=== PATIENT | female | born 1955 | race Caucasian/White ===

== ENCOUNTER → 2017-11-12 07:32 | Outpatient (CLI) | payer OTHER, SELFPAY ==
[2017-11-12 08:22] LABS: Free T3 2.9 pg/mL (2.18-3.98); T4 Free Direct 1.38 ng/dL (0.76-1.46); Thyroid Stim Hormone (TSH) 0.44 uIU/mL (0.358-3.74)
[2017-11-13 08:29] LABS: Thyroid Peroxidase AB > 600 IU/mL (0-34)
== END ==
PROVIDERS: Family Provider Nurse Practitioner Family; PCP Nurse Practitioner Family; Visit Provider Nurse Practitioner Family
DX: E04.9 Nontoxic goiter, unspecified (principal)
CPT/HCPCS: 36415; 84439; 84443; 84481; 86376

== ENCOUNTER → 2017-11-13 07:55 | Outpatient (CLI) | payer OTHER, SELFPAY ==
--- NOTE | 2017-11-13 07:56 | US_ITS ---
STUDY: THYROID ULTRASOUND REASON FOR EXAM: Female, 62 years old. History of nontoxic goiter. TECHNIQUE: Ultrasound evaluation of the thyroid was performed with real-time and static gaines-scale imaging. COMPARISON: Comparison is made with prior study dated June 09, 2017. FINDINGS: RIGHT LOBE: The right lobe of the thyroid gland measures 4.1 cm x 1.0 cm x 1.0 cm. There is a heterogeneous echotexture. Stable 3 mm x 3 mm x 2 mm calcification is seen in the upper pole. LEFT LOBE: The left lobe of the thyroid gland measures 3.3 cm x 0.7 cm x 0.7 cm. There is a heterogeneous echotexture. There are no demonstrated solid, cystic or complex lesions. ISTHMUS: The isthmus measures 5.0 mm. A 2 cm x 1 cm x 0.5 cm lymph node is seen lateral to the left lobe of the thyroid. US/Thyroid IMPRESSION: Heterogeneous echotexture of the thyroid lobes. 3 mm x 3 mm x 2 mm calcification in the upper pole of the right lobe. 2 cm x 1 cm x 0.5 cm benign-appearing lymph node seen lateral to the left lobe of the thyroid. Electronically Signed: Tj Kemp MD at 11:08 EST Tel [phone], Service support ,
== END ==
PROVIDERS: Family Provider Nurse Practitioner Family; PCP Nurse Practitioner Family; Visit Provider Nurse Practitioner Family
DX: E04.9 Nontoxic goiter, unspecified (principal)
CPT/HCPCS: 76536

== ENCOUNTER 2017-12-09 17:55 | Observation (INO) | payer OTHER, SELFPAY ==
[2017-12-09] VITALS (9 sets, daily range): BP systolic 102–144; BP diastolic 70–97; PULSE 69–88; RESP 13–18; TEMP 36.6–36.7; O2SAT 94–98; BMI 26.0; BMI 25.2
--- NOTE | 2017-12-09 18:26 | EKG12_ITS ---
Test Reason : CP Blood Pressure : / mmHG Vent. Rate : 074 BPM Atrial Rate : 074 BPM P-R Int : 128 ms QRS Dur : 080 ms QT Int : 354 ms P-R-T Axes : 034 016 029 degrees QTc Int : 392 ms Normal sinus rhythm Normal ECG Confirmed by DEANDRE FERRER, BOSSMAN ([id number]), dictionary editor SUKHDEV CASAS ([id number]) on 12/11/2017 1:23:42 PM Referred By: ROSALES Confirmed By:BOSSMAN CARRERA MD
--- NOTE | 2017-12-09 18:40 | RAD_ITS ---
STUDY: X-RAY CHEST REASON FOR EXAM: Female, 62 years old. Chest pain. TECHNIQUE: Single AP portable view of the chest. COMPARISON: June 05, 2017. FINDINGS: Port on the right extends to the lower superior vena cava. The lungs are clear and expanded. There is no demonstrated pleural abnormality. Normal size heart. Normal mediastinum and valdo. Normal visualized pulmonary arteries. There is atherosclerotic tortuosity of the aortic arch and descending thoracic aorta. There is demineralization of the osseous structures. Normal visualized ribs, clavicles, and shoulders. There is no demonstrated abnormality of the visualized soft tissue structures of the upper abdomen. RAD/Chest 1 View (Portable) IMPRESSION: Degenerative changes, as described above. No demonstrated acute cardiopulmonary process. Stable appearance. Electronically Signed: Anthony Ledesma MD at 19:11 EST , Service support ,
--- NOTE | 2017-12-09 18:59 | ED.RN ---
PT REQUESTED STRAIGHT STICK NO IV.
[2017-12-09 19:05] LABS: Absolute Lymphocyte Count 2.12 X10^3/ul (0.83-4.51); Absolute Neutrophil Count 1.9 X10^3/uL (2.0-7.7); Basophil# 0.02 X10^3/uL; Basophil% 0.4 % (0-1); Eosinophil# 0.15 X10^3/uL; Eosinophils% 3.1 % (0-5); Hematocrit 35.4 % (37-47); Hemoglobin 11.6 g/dl (12.0-15.0); Lymphocyte # 2.12 X10^3/ul (4.0); Lymphocyte % 44.2 % (19-41); Mean Corp Hgb Conc 32.8 g/gl (32-36); Mean Corpuscular Hgb 31.7 pg (27.0-32.0); Mean Corpuscular Volume 96.7 fL (81-99); Mean Platelet Vol. 9.6 fl (6.2-12.0); Monocyte% 12.5 % (0-10); Neutrophil # 1.91 X10^3/uL (2.7-7.7); Neutrophil % 39.8 % (47-70); Platelet Count 207 K/mm3 (150-450); RBC Distribution Width SD 45.8 fl (35.1-43.9); Red Blood Count 3.66 M/mm3 (4.2-5.4); White Blood Count 4.8 K/mm3 (4.4-11.0)
[2017-12-09 19:09] LABS: POSITIVE COUNT NO; POSITIVE DIFFERENTIAL NO; POSITIVE MORPHOLOGY NO
[2017-12-09 19:28] LABS: Anion Gap 7 (5-15); BUN 13 mg/dL (7-18); BUN/Creat Ratio 18.1 RATIO (10-20); Calcium,Total 8.7 mg/dL (8.5-10.1); Chloride 105 mmol/L (98-107); Creatinine, Serum 0.72 mg/dL (0.55-1.02); EST Glomerular Filtration Rate 87 mL/min (>60); Est Glom Filt Rate - Afr Amer 105 mL/min (>60); Estimated Creatinine Clearance 68.16 ml/min; Glucose 69 mg/dL (74-106); Potassium 3.6 mmol/L (3.5-5.1); Sodium Level 142 mmol/L (136-145)
--- NOTE | 2017-12-09 20:25 | ED.VISSUMM ---
- ER Visit Summary Date of Service: 12/09/17 Chief Complaint: [Chest pain] History of Present Illness: The patient is a 62 F [presents to the emergency department chest discomfort started about 3-4 days ago. Patient states the pain typically comes on when she is at work. Patient does not think that it is brought on by exertion. Patient describes it as in the center of her chest without any radiation. Patient denies any diaphoresis or shortness of breath. Patient denies any nausea with it. Patient is currently pain-free. Patient is a cancer patient with history of ovarian cancer and her last chemotherapy was September 25. Patient describes the discomfort in her chest as a tightness like and lasting anywhere from up to 15-20 minutes. The pain is not pleuritic. His last stress test was in 2002. There is no family history of heart disease at a young age although her father of an PR in his 70s.] Physical Examination: [HEENT-PERRLA, EOMI. Cranial nerves II through XII grossly intact. TMs clear. Mucous membranes moist. No adenopathy. Cardiovascular-regular rate and rhythm without murmur or ectopy Lungs-clear to auscultation, chest wall stable without crepitus or subcu emphysema Abdomen-normoactive bowel sounds, soft, nontender, no rebound or rigidity, no peritoneal signs. Extremities-intact ?4, normal range of motion, normal pulses, atraumatic] Test Results: [EKG obtained on arrival showed a sinus rhythm with a ventricular rate 74 bpm with no acute ST segment changes. CBC with differential was unremarkable. Chemistries unremarkable. Troponin was less than 0.02. Chest x-ray showed nothing acute.] Emergency Department Course and Treatment: [Patient received aspirin in the emergency department] Treatment Plan: [Admit for further workup and evaluation] Disposition: [Admit] Impression: [Chest pain-rule out acute coronary syndrome] This note was generated with e[employer] dictation software. It may contain incorrect words, spelling, and punctuation that were not noted in review of the chart prior to signing ED Disposition - Plan for ED Patient: Chief Complaint: Chest Pain Referrals: Vaishnavi Dudley [Primary Care Provider] -
[2017-12-09] MEDS: Aspirin 81 MG TAB.CHEW 324 MG PO (20:33)
--- NOTE | 2017-12-09 20:56 | HP.PCM_ITS ---
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 GERD comes in with complaints of substernal dull chest pain that has been ongoing since 4 days. Patient denies any history of heart disease, has been having substernal chest pain that typically last about 15 minutes, does not radiate to any part of the body, not associated with nausea or vomiting or dizziness or palpitations. She describes substernal chest pressure or pain which feels like she needs to taking a deep breath. She cannot related to any aggravating or relieving factors. Seems to come on and off by itself multiple times in the day. She decided to come to the ED today because the discomfort was worse. No history of recent travel. She works as a home health nurse. Last stress test was 15 years ago, has not had any echocardiogram or cardiac cath in his life. Vitals are stable with T 97.9F, HR 88 BP 119/70, respiratory rate is 16, patient is saturating 95% on room air. Admitting blood work showed RBC count of 4.8, Hb 11.6, platelet 207. Sodium is 142, potassium 3.6, chloride 105, bicarbonate 30, BUN 13 creatinine 0.72. Troponins 0.02, EKG shows normal sinus rhythm no acute ST-T changes. Chest x-ray shows no acute cardiopulmonary process. Past Medical History Past Medical History (Chronic Problems): Chronic Problems Hypothyroidism (Chronic) Ovarian cancer (Chronic) Allergies Sulfa (Sulfonamide Antibiotics) Allergy (Verified 12/09/17 17:57) Unknown codeine Adverse Reaction (Verified 12/09/17 17:57) Vomiting pentazocine [From Talwin] Adverse Reaction (Verified 12/09/17 17:57) Other HALLUCINATIONS Home Medications: Ambulatory Orders Medication Instructions Recorded Levothyroxine [Synthroid] 88 mcg PO DAILY 04/03/17 Pantoprazole Sodium [Protonix] 40 mg PO DAILY 04/03/17 B Complex with Vitamin C tab PO DAILY 12/09/17 [B-Complex Plus Vitamin C] Docusate Sodium [Colace] 100 mg PO DAILY 12/09/17 Surgical History: hysterectomy - with bilateral BSO, tonsillectomy, - - right knee arthoscopy 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 History: ovarian cancer - s/p chemotherapy Lives: With Family Smoking Status: Former smoker Tobacco Use: Non-smoker Alcohol: None Drugs: None - *Family History Maternal History Items: Hypertension, - - hypothyroidism Paternal History Items: Heart Disease - [place], GERD Review of Systems Constitutional: Denies: Chills, Fever, Weight Change Eyes: Denies: Blurred vision, Cataracts, Conjunctivae Inflammation, Double vision, Pain, Redness HEENT: Denies: Difficulty Hearing, Difficulty Swallowing, Head Aches, Hearing Changes, Sinus Congestion, Sinus Drainage Cardiovascular: Denies: Chest Pain, Claudication, Chest Pressure, Orthopnea, Palpitations, Paroxysmal Noc. Dyspnea Respiratory: Denies: Cough, Shortness of breath at rest, Sputum production Gastrointestinal: Denies: Abdominal Pain, Nausea, Vomiting Genitourinary: Denies: Dysuria Musculoskeletal: Denies: Joint Pain, Joint Tenderness Skin: Denies: Rash, Wounds Neurological: Denies: Numbness, Tingling, Focal weakness Psychiatric: Denies: Anxiety, Depression, Homicidal Ideations, Suicidal Ideations Hematologic/ Lymphatic: Denies: Easy Bruising, Easy Bleeding VTE Information - Inpt Only VTE Present on Admission: No VTE Pharm Prophylaxis ordered?: Yes Patient Problems: Active and Suspected Problems Chest pain (Acute) - Physical Exam General: Alert, Oriented x3, Cooperative HEENT: Atraumatic, PERRLA, EOMI, Normocephalic Neck: Supple, No JVD, Negative Carotid Bruits Lungs: Clear to auscultation, Normal air movement Cardiovascular: Regular rate, No murmurs Abdomen: Bowel Sounds Present, Soft, Non Tender Extremities: No edema, Capillary Refill Less than 3 Seconds Skin: No rashes, No breakdown Musculoskeletal: No Tenderness to Palpation of Joints or Extremities Neurological: Cranial nerves II-XII grossly intact Psych/Mental Status: Normal Affect, Appropriate Vital Signs Temp Pulse Resp BP Pulse Ox 97.9 F 79 18 144/97 H 96 12/09/17 17:57 12/09/17 20:35 12/09/17 20:35 12/09/17 20:35 12/09/17 20:35 Oxygen Flow Rate 2 Oxygen Delivery Method Room Air Weight: 68.9 kg Body Mass Index (BMI) 26.0 Laboratory Tests Past 24 Hrs 12/09/17 12/09/17 18:57 18:57 WBC 4.8 RBC 3.66 L Hgb 11.6 L Hct 35.4 L MCV 96.7 MCH 31.7 MCHC 32.8 RDW 13.0 RDW Differential 45.8 H Plt Count 207 MPV 9.6 Immature Gran % (Auto) 0.000 Neut % (Auto) 39.8 L Lymph % (Auto) 44.2 H Bullock % (Auto) 12.5 H Eos % (Auto) 3.1 Baso % (Auto) 0.4 Absolute Neuts (auto) 1.9 L Absolute Lymphs (auto) 2.12 Total Counted Not Reportable Sodium 142 Potassium 3.6 Chloride 105 Carbon Dioxide 30.0 Anion Gap 7 BUN 13 Creatinine 0.72 Estim Creat Clear Calc 68.16 Est GFR (MDRD) Af Amer 105 Est GFR (MDRD) Non-Af 87 BUN/Creatinine Ratio 18.1 Glucose 69 L Calcium 8.7 Troponin I < 0.02 Assessment/Plan Active and Suspected Problems Chest pain (Acute) 62 year old F past medical history of ovarian cancer status post SAMEER/BSO, completed chemotherapy in September 2017, hypothyroidism. GERD comes in with complaints of substernal dull chest pain that has been ongoing since 4 days. 1. Chest pain, atypical, in a patient with risk factors, EKG shows normal sinus rhythm, no acute ST changes, d-dimer is elevated although slightly less than the cutoff point, CTA of the chest is negative for acute PE Plan: To PCU, monitor on telemetry, trend troponins, stress test in a.m., aspirin 81mg po daily, lipid profile in am 2. Elevated d-dimer, CT of the chest negative for PE 3. History of ovarian cancer, status post SAMEER/BSO, last chemotherapy was September 2017 4. Hypothyroidism, on Synthroid 5. GERD, on PPI 6. DVT prophylaxis with Lovenox Sc Code Visit OBSV E&M: [id number] Initial observation care L3
--- NOTE | 2017-12-09 21:54 | ECHOD_ITS ---
Reason For Study: CHEST PAIN Procedure This was a 2D Doppler, Color Flow transthoracic echocardiogram. Exam performed portable in patient room. Left Ventricle Normal size and thickness. The estimated ejection fraction is 65 %. Normal diastology for age. No regional wall motion abnormalities noted. Right Ventricle Normal size and thickness. Normal systolic function. Atria Normal left atrium. Normal right atrium. Normal atrial septum. Mitral Valve The mitral valve is structurally normal. No prolapse or stenosis seen. Tricuspid Valve Normal tricuspid valve. Trivial tricuspid valve insufficiency. Right ventricular systolic pressure estimated to be 26 mmHg. Aortic Valve Normal aortic valve. Trisinus/trileaflet aortic valve. Pulmonic Valve Normal pulmonic valve. Great Vessels Normal aortic root. Normal arch. Normal inferior vena cava. Inferior vena cava collapse with sniff. Pericardium/Pleural No pericardial effusion. MMode/2D Measurements & Calculations LVIDd: 4.0 cm IVSd: 0.90 cm Ao root diam: 3.3 cm LVIDs: 2.8 cm LVPWd: 1.0 cm LA dimension: 3.4 cm FS: 28.5 % LAV(MOD-bp): 31.4 ml EDV(MOD-sp4): 87.5 ml EDV(MOD-sp2): 81.6 ml LAV(MOD-bp) Indexed: 18.1 ml/m2 ESV(MOD-sp4): 35.2 ml EF(MOD-sp2): 53.7 % LAV(MOD-sp2): 34.4 ml EF(MOD-sp4): 59.8 % LAV(MOD-sp4): 28.9 ml SV(MOD-sp4): 52.3 ml SV(MOD-sp2): 43.8 ml LA A4 area: 12.2 cm2 RA A4 area: 12.0 cm2 Doppler Measurements & Calculations MV E max art: 68.7 cm/sec Ao V2 max: 146.2 cm/sec LV V1 max: 134.7 cm/sec MV A max art: 40.8 cm/sec Ao max P.6 mmHg LV V1 max P.3 mmHg MV E/A: 1.7 TR max art: 213.3 cm/sec TR max P.3 mmHg Interpretation Summary The estimated ejection fraction is 65 %. Normal diastology for age. Trivial tricuspid valve insufficiency. Right ventricular systolic pressure estimated to be 26 mmHg. There is no comparison study available. Ordering Physician: Ute Pugh Referring Physician: Vaishnavi Dudley Performed By: Gaby Grace, LANE, RVT
[2017-12-09 22:32] LABS: D-Dimer Quantitative (DVT/PE) 0.61 FEU/ug/m (0.27-0.49)
--- NOTE | 2017-12-09 22:49 | CT_ITS ---
STUDY: CTA CHEST REASON FOR EXAM: Female, 62 years old. Chest pain and elevated d-dimer. RADIATION DOSAGE (If Supplied By Facility): CTDIvol = ( 8.46 ) mGy, DLP = ( 214.11 ) mGycm TECHNIQUE: The examination was performed with the intravenous administration of 100 ml of Isovue 370 contrast material. Post-processing of the angiographic images was performed, with multiplanar reformation and 3D reconstruction. Individualized dose optimization techniques were used for this CT. COMPARISON: Portable chest radiograph of December 09, 2017 FINDINGS: Normal enhancement of the main pulmonary artery and right and left pulmonary arteries. Normal enhancement of the bilateral peripheral pulmonary arteries. There is no demonstrated pulmonary embolism. Minimal plaque and moderate elongation of the thoracic aorta without aneurysm or dissection. Normal heart and pericardium. Normal mediastinum. Normal hilar regions. Normal visualized trachea and bronchi. The lungs are well expanded. Mild bibasilar atelectatic changes. Bronchial thickening lower lobes. Normal pleura. Normal chest wall structures. There are degenerative changes of thoracic spine. Subcentimeter cyst of the right liver. CT/CTA Chest W/WO Contrast IMPRESSION: Negative for pulmonary embolus. Atherosclerotic changes of the thoracic aorta without aneurysm or dissection. Negative for coronary calcifications. Mild bibasilar atelectatic changes and lower lobe bronchial thickening. Subcentimeter cyst of the right liver. Electronically Signed: Salma Winters MD at 23:45 EST , Service support ,
[2017-12-10] VITALS (8 sets, daily range): BP systolic 104–123; BP diastolic 60–68; PULSE 67–80; RESP 16–18; TEMP 36.6–36.9; O2SAT 97–98
[2017-12-10 03:43] LABS: Hematocrit 33.4 % (37-47); Hemoglobin 11.3 g/dl (12.0-15.0); Mean Corp Hgb Conc 33.8 g/gl (32-36); Mean Corpuscular Hgb 32.9 pg (27.0-32.0); Mean Corpuscular Volume 97.4 fL (81-99); Mean Platelet Vol. 9.2 fl (6.2-12.0); Platelet Count 203 K/mm3 (150-450); RBC Distribution Width CV 12.5 % (11.6-14.6); RBC Distribution Width SD 43.1 fl (35.1-43.9); Red Blood Count 3.43 M/mm3 (4.2-5.4); White Blood Count 5.5 K/mm3 (4.4-11.0)
[2017-12-10 03:51] LABS: Partial Thromboplast Time 26.5 Seconds (24.1-36.2)
[2017-12-10 04:36] LABS: Scan Indicated on CBC? Y/N NO
[2017-12-10 04:46] LABS: International Normalized Ratio 0.9; Prothrombin Time (Protime)PT. 11.7 SECONDS (11.7-14.9)
[2017-12-10 04:47] LABS: Anion Gap 8 (5-15); BUN 12 mg/dL (7-18); BUN/Creat Ratio 20.2 RATIO (10-20); Calcium,Total 8.3 mg/dL (8.5-10.1); Chloride 106 mmol/L (98-107); Creatinine, Serum 0.59 mg/dL (0.55-1.02); EST Glomerular Filtration Rate 108 mL/min (>60); Est Glom Filt Rate - Afr Amer 131 mL/min (>60); Estimated Creatinine Clearance 83.18 ml/min; Glucose 107 mg/dL (74-106); Potassium 3.7 mmol/L (3.5-5.1); Sodium Level 141 mmol/L (136-145)
[2017-12-10] MEDS: Levothyroxine 88 MCG Tablet PO (05:46)
[2017-12-10 05:47] LABS: Cholesterol 147 mg/dL (200); High Density Lipoprotein 51 mg/dL; Triglycerides 117 mg/dL; Very Low Density Lipoprotein 23 mg/dL (5-40)
--- NOTE | 2017-12-10 05:55 | EKG12_ITS ---
Test Reason : AM EKG Blood Pressure : / mmHG Vent. Rate : 063 BPM Atrial Rate : 063 BPM P-R Int : 128 ms QRS Dur : 086 ms QT Int : 380 ms P-R-T Axes : 030 017 023 degrees QTc Int : 388 ms Normal sinus rhythm Normal ECG Confirmed by DEANDRE FERRER, BOSSMAN ([id number]), online content editor SUKHDEV CASAS ([id number]) on 12/11/2017 1:41:50 PM Referred By: MADALYN Confirmed By:BOSSMAN CARRERA MD
--- NOTE | 2017-12-10 09:54 | STRESSREP ---
Stress Test Report Date: 12/10/2017 Procedure: Pharmacologic stress nuclear imaging study Indications: Chest pain Consent: Per patient Procedure: The patient underwent pharmacologic (Regadenoson) evaluation with a peak heart rate of 117 per minute and a peak blood pressure of 126/78 mmHg. The baseline ECG demonstrated sinus rhythm. The peak pharmacologic ECG demonstrated no obvious ECG changes. There were no cardiac dysrhythmias pretest, during pharmacologic infusion, or recovery. There was no complaint of chest discomfort during pharmacologic infusion or recovery. The examination was discontinued secondary to completion of protocol. Impression: 1. Pharmacologic (Regadenoson) evaluation 2. Peak pharmacologic ECG with no obvious ECG changes. 3. No cardiac dysrhythmias pretest, during pharmacologic infusion, or recovery 4. Nuclear images pending Myocardial perfusion imaging study: Technique: The patient was injected with 11.3 millicuries of technetium 99m Cardiolite and subsequently rest SPECT Cardiolite nuclear imaging was obtained in the horizontal long, vertical long, and short axis views. The patient underwent pharmacologic (Regadenoson) evaluation with a peak heart rate of 117 per minute and a peak blood pressure of 126/78 mmHg. the patient was injected with 32.9 millicuries of technetium 99m Cardiolite and subsequently stress SPECT Cardiolite nuclear imaging was obtained in the horizontal long, vertical long, and short axis views. A gated Cardiolite study at peak stress was obtained. Interpretation: Rest and stress SPECT Cardiolite nuclear imaging status post realignment, normalization, and attenuation correction demonstrate cardiac/gastrointestinal tracer uptake and otherwise relative uniform tracer uptake and myocardial perfusion appearing within normal limits. There is end systolic thickening and brightening. The gated Cardiolite study demonstrates myocardial thickening and inward wall motion. The reported LVEF is 79%. Impression: 1. And stress SPECT Cardiolite nuclear imaging demonstrate extracardiac/gastrointestinal tracer uptake and otherwise relative uniform tracer uptake and myocardial perfusion appearing within normal limits. 2. The gated Cardiolite study reports an LVEF of 79% This note was generated with Auto Secureation software. It may contain incorrect words, spelling, and punctuation that were not noted in checking the note before signing.
--- NOTE | 2017-12-10 09:58 | STRESSREP_ITS ---
Stress Test Report Date: 12/10/2017 Procedure: Pharmacologic stress nuclear imaging study Indications: Chest pain Consent: Per patient Procedure: The patient underwent pharmacologic (Regadenoson) evaluation with a peak heart rate of 117 per minute and a peak blood pressure of 126/78 mmHg. The baseline ECG demonstrated sinus rhythm. The peak pharmacologic ECG demonstrated no obvious ECG changes. There were no cardiac dysrhythmias pretest, during pharmacologic infusion, or recovery. There was no complaint of chest discomfort during pharmacologic infusion or recovery. The examination was discontinued secondary to completion of protocol. Impression: 1. Pharmacologic (Regadenoson) evaluation 2. Peak pharmacologic ECG with no obvious ECG changes. 3. No cardiac dysrhythmias pretest, during pharmacologic infusion, or recovery 4. Nuclear images pending Myocardial perfusion imaging study: Technique: The patient was injected with 11.3 millicuries of technetium 99m Cardiolite and subsequently rest SPECT Cardiolite nuclear imaging was obtained in the horizontal long, vertical long, and short axis views. The patient underwent pharmacologic (Regadenoson) evaluation with a peak heart rate of 117 per minute and a peak blood pressure of 126/78 mmHg. the patient was injected with 32.9 millicuries of technetium 99m Cardiolite and subsequently stress SPECT Cardiolite nuclear imaging was obtained in the horizontal long, vertical long, and short axis views. A gated Cardiolite study at peak stress was obtained. Interpretation: Rest and stress SPECT Cardiolite nuclear imaging status post realignment, normalization, and attenuation correction demonstrate cardiac/gastrointestinal tracer uptake and otherwise relative uniform tracer uptake and myocardial perfusion appearing within normal limits. There is end systolic thickening and brightening. The gated Cardiolite study demonstrates myocardial thickening and inward wall motion. The reported LVEF is 79%. Impression: 1. And stress SPECT Cardiolite nuclear imaging demonstrate extracardiac/ gastrointestinal tracer uptake and otherwise relative uniform tracer uptake and myocardial perfusion appearing within normal limits. 2. The gated Cardiolite study reports an LVEF of 79% This note was generated with E[employer] software. It may contain incorrect words, spelling, and punctuation that were not noted in checking the note before signing.
[2017-12-10] MEDS: Pantoprazole Sodium 40 MG Tablet PO (10:08)
--- NOTE | 2017-12-10 10:53 | PCM.DC ---
- Discharge Diagnoses Current Active Problems: Current Active and Chronic Problems Chest pain (Acute) Hypothyroidism (Chronic) You will use the following diet at home:: Regular Your food should be the consistency of: Regular Discharge Activity: Return to Normal Activity Weight Bearing Status: Full weight bearing Call your doctor if you observe: Fever of 101 or Higher, Shortness of breath, Dizziness, Fainting spells, Chest pain, Increased palpitations (irregular heartbeat), Uncontrolled pain Allergies/Adverse Reactions: Allergies Sulfa (Sulfonamide Antibiotics) Allergy (Verified 12/09/17 17:57) Unknown codeine Adverse Reaction (Verified 12/09/17 17:57) Vomiting pentazocine [From Talwin] Adverse Reaction (Verified 12/09/17 17:57) Other HALLUCINATIONS Medications to take at Discharge Levothyroxine [Synthroid] 88 mcg PO DAILY 04/03/17 Pantoprazole Sodium [Protonix] 40 mg PO DAILY 04/03/17 B Complex with Vitamin C [B-Complex Plus Vitamin C] tab PO DAILY 12/09/17 Docusate Sodium [Colace] 100 mg PO DAILY 12/09/17 Primary Care Physician: Vaishnavi Dudley [Primary Care Provider] - Please follow up with your Primary Care Physician in: as scheduled.
--- NOTE | 2017-12-10 14:10 | PCM.DC.SUM ---
Discharge Date and Diagnosis Date of Admission: 12/09/17 Date of Discharge: 12/10/17 - Primary Discharge Diagnosis Chest pain, negative cardiac workup including stress test, attributed to GERD. - Secondary Discharge Diagnosis Chronic Problems Hypothyroidism (Chronic) Ovarian cancer (Chronic) Hospital Course and Treatment Imaging Results: 12/10/17 05:55 Nuclear Stress Test - Chemical [NM] AM (NON MEDS) Clinical Impression(s) from Imaging Studies Chest X-Ray 12/09/17 18:40 IMPRESSION: Degenerative changes, as described above. No demonstrated acute cardiopulmonary process. Stable appearance. Electronically Signed: Anthony Ledesma MD at 19:11 EST , Service support , Chest CTA 12/09/17 22:49 IMPRESSION: Negative for pulmonary embolus. Atherosclerotic changes of the thoracic aorta without aneurysm or dissection. Negative for coronary calcifications. Mild bibasilar atelectatic changes and lower lobe bronchial thickening. Subcentimeter cyst of the right liver. Electronically Signed: Salma Winters MD at 23:45 EST , Service support , Operations: None, - - Total abdominal hysterectomy, bilateral salpingo-oophorectomy Procedures: EKG, Stress test Summary of Care Provided: Patient seen and examined on the day of discharge and appeared to be stable to be discharged home. She has no more chest pain. Vital signs are stable. - Physical Exam General: Alert, Oriented x3, Cooperative, No apparent distress. HEENT: Atraumatic, PERRLA, EOMI. Neck: Supple, No JVD, Negative Carotid Bruits, Trachea Midline, Thyroid Normal. Lungs: Clear to auscultation, Normal air movement, No rhonchi, No wheeze, No rales. Cardiovascular: Regular rate, Regular Rhythm, Normal S1, Normal S2, PMI Normal. Abdomen: Bowel Sounds Present, Soft, Non Tender, Non-Distended, No Hepato-splenomegaly. Extremities: No clubbing, No cyanosis, No edema Skin: No rashes, No breakdown Neurological: Neuro grossly intact Vital Signs are stable. Hospital course: The patient is a 62 year old F with admitted a because of chest pain which seemed to be atypical. Her cardiac workup was negative. Her EKG was normal without evidence of acute ischemic changes. Her troponin was negative ?4. Chest x-ray showed no acute findings. She was found to have elevated d-dimer and because of her history of ovarian cancer, CTA chest performed and was negative for PE or dissection. Patient underwent nuclear stress test that was reported as negative without evidence of stress-induced myocardial ischemia. Acute coronary syndrome ruled out. Her vital signs has been stable. Routine blood work was unremarkable except for chronic anemia with stable hemoglobin. Patient discharged home in a stable medical condition, discharged on her same home medication without any changes, recommended follow-up with PCP as scheduled. Discharge Activity: Return to Normal Activity Weight Bearing Status: Full weight bearing Call your doctor if you observe: Fever of 101 or Higher, Shortness of breath, Dizziness, Fainting spells, Chest pain, Increased palpitations (irregular heartbeat), Uncontrolled pain Home Medications: Medications to take at Discharge Levothyroxine [Synthroid] 88 mcg PO DAILY 04/03/17 Pantoprazole Sodium [Protonix] 40 mg PO DAILY 04/03/17 B Complex with Vitamin C [B-Complex Plus Vitamin C] tab PO DAILY 12/09/17 Docusate Sodium [Colace] 100 mg PO DAILY 12/09/17 Primary Care Physician: Vaishnavi Dudley [Primary Care Provider] - Please follow up with your Primary Care Physician in: as scheduled. Disposition: Home Minutes spent on discharge:: 24 Patient Condition:: Stable Meaningful Use Info Meaningful Use Diagnoses (Choose all that apply): None applicable Code Visit OBSV E&M: 15862 Observation care discharge
--- NOTE | 2017-12-10 14:14 | DS.PCM_ITS ---
Discharge Date and Diagnosis Date of Admission: 12/09/17 Date of Discharge: 12/10/17 - Primary Discharge Diagnosis Chest pain, negative cardiac workup including stress test, attributed to GERD. - Secondary Discharge Diagnosis Chronic Problems Hypothyroidism (Chronic) Ovarian cancer (Chronic) Hospital Course and Treatment Imaging Results: 12/10/17 05:55 Nuclear Stress Test - Chemical [NM] AM (NON MEDS) Clinical Impression(s) from Imaging Studies Chest X-Ray 12/09/17 18:40 IMPRESSION: Degenerative changes, as described above. No demonstrated acute cardiopulmonary process. Stable appearance. Electronically Signed: Anthony Ledesma MD at 19:11 EST , Service support , Chest CTA 12/09/17 22:49 IMPRESSION: Negative for pulmonary embolus. Atherosclerotic changes of the thoracic aorta without aneurysm or dissection. Negative for coronary calcifications. Mild bibasilar atelectatic changes and lower lobe bronchial thickening. Subcentimeter cyst of the right liver. Electronically Signed: Salma Winters MD at 23:45 EST , Service support , Operations: None, - - Total abdominal hysterectomy, bilateral salpingo- oophorectomy Procedures: EKG, Stress test Summary of Care Provided: Patient seen and examined on the day of discharge and appeared to be stable to be discharged home. She has no more chest pain. Vital signs are stable. - Physical Exam General: Alert, Oriented x3, Cooperative, No apparent distress. HEENT: Atraumatic, PERRLA, EOMI. Neck: Supple, No JVD, Negative Carotid Bruits, Trachea Midline, Thyroid Normal. Lungs: Clear to auscultation, Normal air movement, No rhonchi, No wheeze, No rales. Cardiovascular: Regular rate, Regular Rhythm, Normal S1, Normal S2, PMI Normal. Abdomen: Bowel Sounds Present, Soft, Non Tender, Non-Distended, No Hepato- splenomegaly. Extremities: No clubbing, No cyanosis, No edema Skin: No rashes, No breakdown Neurological: Neuro grossly intact Vital Signs are stable. Hospital course: The patient is a 62 year old F with admitted a because of chest pain which seemed to be atypical. Her cardiac workup was negative. Her EKG was normal without evidence of acute ischemic changes. Her troponin was negative ?4. Chest x-ray showed no acute findings. She was found to have elevated d-dimer and because of her history of ovarian cancer, CTA chest performed and was negative for PE or dissection. Patient underwent nuclear stress test that was reported as negative without evidence of stress-induced myocardial ischemia. Acute coronary syndrome ruled out. Her vital signs has been stable. Routine blood work was unremarkable except for chronic anemia with stable hemoglobin. Patient discharged home in a stable medical condition, discharged on her same home medication without any changes, recommended follow-up with PCP as scheduled. Discharge Activity: Return to Normal Activity Weight Bearing Status: Full weight bearing Call your doctor if you observe: Fever of 101 or Higher, Shortness of breath, Dizziness, Fainting spells, Chest pain, Increased palpitations (irregular heartbeat), Uncontrolled pain Home Medications: Medications to take at Discharge Levothyroxine [Synthroid] 88 mcg PO DAILY 04/03/17 Pantoprazole Sodium [Protonix] 40 mg PO DAILY 04/03/17 B Complex with Vitamin C [B-Complex Plus Vitamin C] tab PO DAILY 12/09/17 Docusate Sodium [Colace] 100 mg PO DAILY 12/09/17 Primary Care Physician: Vaishnavi Dudley [Primary Care Provider] - Please follow up with your Primary Care Physician in: as scheduled. Disposition: Home Minutes spent on discharge:: 24 Patient Condition:: Stable Meaningful Use Info Meaningful Use Diagnoses (Choose all that apply): None applicable Code Visit OBSV E&M: 79905 Observation care discharge
== END 2017-12-10 12:12 | disposition home or self-care (01) ==
LOC: ED 20:35 → PCU 21:00
PROVIDERS: Admitting Provider Internal Medicine; Emergency Provider Emergency Medicine; Family Provider Nurse Practitioner Family; PCP Nurse Practitioner Family; Visit Provider Hospitalist
DX: R07.89 Other chest pain (principal); Z85.43 Personal history of malignant neoplasm of ovary; Z92.21 Personal history of antineoplastic chemotherapy; E03.9 Hypothyroidism, unspecified; Z79.899 Other long term (current) drug therapy; E06.3 Autoimmune thyroiditis; K21.9 Gastro-esophageal reflux disease without esophagitis; Z87.891 Personal history of nicotine dependence
CPT/HCPCS: 36415; 71045; 71275; 78452; 80048; 80061; 84484; 85025; 85027; 85379; 85610; 85730; 93005; 93017; 93306; 99218; 99283; A9500; Q9967; A4216; G0378; J2785

== ENCOUNTER → 2017-12-18 07:32 | Outpatient (CLI) | payer OTHER, SELFPAY ==
[2017-12-19 09:00] LABS: Cancer Antigen 125 5.7 U/mL (0.0-38.1)
== END ==
PROVIDERS: Family Provider Nurse Practitioner Family; PCP Nurse Practitioner Family; Visit Provider Obstetrics & Gynecology
DX: C56.9 Malignant neoplasm of unspecified ovary (principal)
CPT/HCPCS: 36591; 86304; A4216

== ENCOUNTER → 2018-01-29 07:23 | Outpatient (CLI) | payer OTHER, SELFPAY | PROVIDERS: Family Provider Nurse Practitioner Family; PCP Nurse Practitioner Family; Visit Provider Obstetrics & Gynecology | DX: Z45.2 Encounter for adjustment and management of vascular access device (principal); C56.9 Malignant neoplasm of unspecified ovary | CPT/HCPCS: 96523; A4216 ==

== ENCOUNTER → 2018-03-23 07:00 | Outpatient (CLI) | payer OTHER, SELFPAY ==
--- NOTE | 2018-03-23 07:00 | DT_ITS ---
This patient was seen during an EMR downtime March 22, 2018 - March 29, 2018. This patient may have a combination of paper and electronic documentation or all paper documentation. All documentation is viewable within the e-chart portion of [facility] for each patient visit.
== END ==
PROVIDERS: Family Provider Nurse Practitioner Family; PCP Nurse Practitioner Family; Visit Provider Obstetrics & Gynecology
DX: Z45.2 Encounter for adjustment and management of vascular access device (principal); C56.9 Malignant neoplasm of unspecified ovary
CPT/HCPCS: 36591; 86304; A4216

== ENCOUNTER → 2018-05-04 07:29 | Outpatient (CLI) | payer OTHER, SELFPAY ==
[2018-05-04 09:54] LABS: Free T3 2.5 pg/mL (2.18-3.98); T4 Free Direct 1.21 ng/dL (0.76-1.46); Thyroid Stim Hormone (TSH) 1.32 uIU/mL (0.358-3.74)
== END ==
PROVIDERS: Family Provider Nurse Practitioner Family; PCP Nurse Practitioner Family; Visit Provider Nurse Practitioner Family
DX: E06.3 Autoimmune thyroiditis (principal)
CPT/HCPCS: 36415; 84439; 84443; 84481

== ENCOUNTER → 2018-05-11 07:30 | Outpatient (CLI) | payer OTHER, SELFPAY | PROVIDERS: Family Provider Nurse Practitioner Family; PCP Nurse Practitioner Family; Visit Provider Obstetrics & Gynecology | DX: Z45.2 Encounter for adjustment and management of vascular access device (principal); C56.9 Malignant neoplasm of unspecified ovary | CPT/HCPCS: 96523 ==

== ENCOUNTER → 2018-06-08 09:59 | Outpatient (CLI) | payer OTHER, SELFPAY | PROVIDERS: Family Provider Nurse Practitioner Family; PCP Nurse Practitioner Family; Visit Provider Physician Assistant Surgical | DX: S80.02XA Contusion of left knee, initial encounter (principal); X58.XXXA Exposure to other specified factors, initial encounter; Y93.9 Activity, unspecified; Y92.9 Unspecified place or not applicable; Y99.9 Unspecified external cause status | CPT/HCPCS: 73564 ==

== ENCOUNTER → 2018-06-22 07:29 | Outpatient (CLI) | payer OTHER, SELFPAY | PROVIDERS: Family Provider Nurse Practitioner Family; PCP Nurse Practitioner Family; Visit Provider Obstetrics & Gynecology | DX: C56.9 Malignant neoplasm of unspecified ovary (principal) | CPT/HCPCS: 96523; A4216 ==

== ENCOUNTER → 2018-08-10 07:42 | Outpatient (CLI) | payer OTHER, SELFPAY ==
[2018-08-11 11:10] LABS: Cancer Antigen 125 6.2 U/mL (0.0-38.1)
== END ==
PROVIDERS: Family Provider Nurse Practitioner Family; PCP Nurse Practitioner Family; Visit Provider Obstetrics & Gynecology
DX: C56.9 Malignant neoplasm of unspecified ovary (principal)
CPT/HCPCS: 36591; 86304; A4216

== ENCOUNTER → 2018-09-21 07:41 | Outpatient (CLI) | payer OTHER, SELFPAY ==
[2018-09-22 11:58] LABS: Cancer Antigen 125 5.3 U/mL (0.0-38.1)
== END ==
PROVIDERS: Family Provider Nurse Practitioner Family; PCP Nurse Practitioner Family; Referring Provider Obstetrics & Gynecology; Visit Provider Obstetrics & Gynecology
DX: C56.9 Malignant neoplasm of unspecified ovary (principal)
CPT/HCPCS: 36591; 86304; A4216

== ENCOUNTER → 2018-11-02 07:30 | Outpatient (CLI) | payer OTHER, SELFPAY | PROVIDERS: Family Provider Nurse Practitioner Family; PCP Nurse Practitioner Family; Referring Provider Obstetrics & Gynecology; Visit Provider Obstetrics & Gynecology | DX: C56.9 Malignant neoplasm of unspecified ovary (principal) | CPT/HCPCS: 96523 ==

== ENCOUNTER → 2018-12-10 07:22 | Outpatient (CLI) | payer OTHER, SELFPAY ==
--- NOTE | 2018-12-10 07:01 | BI_ITS ---
MAMMOGRAPHY - BILATERAL SCREENING REASON FOR EXAM: Female, 63 years old. Routine annual screening examination. PERTINENT HISTORY: Non-contributory. TECHNIQUE: Digital bilateral breast charu (3D mammographic acquisition) in the CC and MLO projections. 2-D mediolateral oblique (MLO) and craniocaudad (CC) views of both breasts were obtained. CAD: Full Field Digital Mammography with Computer Added Detection was performed. COMPARISON: Comparison is made with prior outside examination dated March 25, 2017. FINDINGS: Breast Composition: The breasts are heterogeneously dense, which may obscure small masses. There are no dominant masses or suspicious calcifications. No other significant abnormalities are identified. There has been no significant change since the prior study. BI/SCREENING MAMM (CAD), BILAT IMPRESSION: Stable bilateral screening mammogram. Yearly follow-up mammogram recommended. (A) ASSESSMENT CATEGORY: BIRADS Category 1: Negative. A letter regarding these results will be sent to the patient by the facility within 30 days. Approximately 10% of breast cancers are not detected by mammography. A normal mammogram should not delay biopsy of a clinically suspicious abnormality. [id number] Electronically Signed: Tj eKmp, at 10:54 EST , Service support ,
== END ==
PROVIDERS: Family Provider Nurse Practitioner Family; PCP Nurse Practitioner Family; Referring Provider Obstetrics & Gynecology; Visit Provider Obstetrics & Gynecology
DX: Z12.31 Encounter for screening mammogram for malignant neoplasm of breast (principal)
CPT/HCPCS: 77063; 77067

== ENCOUNTER → 2018-12-14 07:30 | Outpatient (CLI) | payer OTHER, SELFPAY ==
[2018-12-15 12:17] LABS: Cancer Antigen 125 5.1 U/mL (0.0-38.1)
== END ==
PROVIDERS: Family Provider Nurse Practitioner Family; PCP Nurse Practitioner Family; Referring Provider Obstetrics & Gynecology; Visit Provider Obstetrics & Gynecology
DX: C56.9 Malignant neoplasm of unspecified ovary (principal)
CPT/HCPCS: 36591; 86304; J7050

== ENCOUNTER → 2019-01-25 07:22 | Outpatient (CLI) | payer OTHER, SELFPAY | PROVIDERS: Family Provider Nurse Practitioner Family; PCP Nurse Practitioner Family; Referring Provider Obstetrics & Gynecology; Visit Provider Obstetrics & Gynecology | DX: C56.9 Malignant neoplasm of unspecified ovary (principal) | CPT/HCPCS: 96523 ==

== ENCOUNTER → 2019-03-10 07:25 | Outpatient (CLI) | payer OTHER, SELFPAY ==
[2019-03-11 10:12] LABS: Cancer Antigen 125 4.3 U/mL (0.0-38.1)
== END ==
PROVIDERS: Family Provider Nurse Practitioner Family; PCP Nurse Practitioner Family; Referring Provider Obstetrics & Gynecology; Visit Provider Obstetrics & Gynecology
DX: C56.9 Malignant neoplasm of unspecified ovary (principal)
CPT/HCPCS: 36591; 86304; A4216

== ENCOUNTER → 2019-04-20 07:21 | Outpatient (CLI) | payer OTHER, SELFPAY | PROVIDERS: Family Provider Nurse Practitioner Family; PCP Nurse Practitioner Family; Referring Provider Obstetrics & Gynecology; Visit Provider Obstetrics & Gynecology | DX: Z45.2 Encounter for adjustment and management of vascular access device (principal); C56.9 Malignant neoplasm of unspecified ovary | CPT/HCPCS: 36591; 86304; A4216 ==

== ENCOUNTER → 2019-06-09 07:32 | Outpatient (CLI) | payer OTHER, SELFPAY ==
[2019-05-25 10:55] VITALS: BMI 25.2
== END ==
PROVIDERS: Family Provider Nurse Practitioner Family; PCP Nurse Practitioner Family; Referring Provider Obstetrics & Gynecology; Visit Provider Obstetrics & Gynecology
DX: Z45.2 Encounter for adjustment and management of vascular access device (principal); C56.9 Malignant neoplasm of unspecified ovary
CPT/HCPCS: 96523

== ENCOUNTER → 2019-07-21 07:35 | Outpatient (CLI) | payer OTHER, SELFPAY ==
[2019-05-25 10:55] VITALS: BMI 25.2
[2019-07-22 12:44] LABS: Cancer Antigen 125 4.4 U/mL (0.0-38.1)
== END ==
PROVIDERS: Family Provider Nurse Practitioner Family; PCP Nurse Practitioner Family; Referring Provider Obstetrics & Gynecology; Visit Provider Obstetrics & Gynecology
DX: Z45.2 Encounter for adjustment and management of vascular access device (principal); C56.9 Malignant neoplasm of unspecified ovary
CPT/HCPCS: 36591; 86304; A4216

== ENCOUNTER → 2019-08-03 10:43 | Outpatient (CLI) | payer OTHER, SELFPAY ==
[2019-05-25 10:55] VITALS: BMI 25.2
[2019-08-05 15:59] LABS: HPV Reflexed? NOT INDICATED
== END ==
PROVIDERS: Visit Provider Obstetrics & Gynecology
DX: C56.9 Malignant neoplasm of unspecified ovary (principal)
CPT/HCPCS: 88175; G0145

== ENCOUNTER → 2019-08-30 07:40 | Outpatient (CLI) | payer OTHER, SELFPAY ==
[2019-05-25 10:55] VITALS: BMI 25.2
== END ==
PROVIDERS: Family Provider Nurse Practitioner Family; PCP Nurse Practitioner Family; Referring Provider Obstetrics & Gynecology; Visit Provider Obstetrics & Gynecology
DX: C56.9 Malignant neoplasm of unspecified ovary (principal)
CPT/HCPCS: 96523

== ENCOUNTER → 2020-01-27 09:12 | Outpatient (CLI) | payer OTHER, SELFPAY ==
[2019-10-15 08:54] VITALS: BMI 25.2
[2020-01-28 05:52] LABS: Cancer Antigen 125 4.6 U/mL (0.0-38.1)
== END ==
PROVIDERS: PCP Nurse Practitioner Family
DX: C56.2 Malignant neoplasm of left ovary (principal)
CPT/HCPCS: 36415; 86304

== ENCOUNTER → 2020-04-11 | Outpatient (CLI) | payer SELFPAY ==
[2019-10-15 08:54] VITALS: BMI 25.2
== END | disposition home or self-care (01) ==
PROVIDERS: PCP Nurse Practitioner Family; Visit Provider Obstetrics & Gynecology
DX: Z12.4 Encounter for screening for malignant neoplasm of cervix (principal)
CPT/HCPCS: 88175; G0145

== ENCOUNTER → 2020-05-18 15:09 | Outpatient (CLI) | payer MEDICARE, SELFPAY ==
[2019-10-15 08:54] VITALS: BMI 25.2
[2020-05-21 04:42] LABS: Cancer Antigen 125 4.4 U/mL (0.0-38.1)
== END ==
PROVIDERS: PCP Nurse Practitioner Family; Referring Provider Obstetrics & Gynecology; Visit Provider Obstetrics & Gynecology
DX: C56.2 Malignant neoplasm of left ovary (principal)
CPT/HCPCS: 36415; 86304

== ENCOUNTER → 2020-08-10 13:05 | Outpatient (CLI) | payer MEDICARE, SELFPAY ==
[2019-10-15 08:54] VITALS: BMI 25.2
[2020-08-13 14:14] LABS: Cancer Antigen 125 4.3 U/mL (0.0-38.1)
== END ==
PROVIDERS: PCP Nurse Practitioner Family; Referring Provider Obstetrics & Gynecology; Visit Provider Obstetrics & Gynecology
DX: C56.2 Malignant neoplasm of left ovary (principal)
CPT/HCPCS: 36415; 86304

== ENCOUNTER → 2021-01-28 10:09 | Outpatient (CLI) | payer MEDICARE, BC, SELFPAY ==
[2019-10-15 08:54] VITALS: BMI 25.2
[2021-01-29 14:54] LABS: Cancer Antigen 125 4.6 U/mL (0.0-38.1)
== END ==
PROVIDERS: PCP Nurse Practitioner Family; Referring Provider Obstetrics & Gynecology; Visit Provider Obstetrics & Gynecology
DX: C56.2 Malignant neoplasm of left ovary (principal)
CPT/HCPCS: 36415; 86304

== ENCOUNTER → 2021-02-15 | Outpatient (CLI) | payer MEDICARE, BC, SELFPAY ==
[2019-10-15 08:54] VITALS: BMI 25.2
== END | disposition home or self-care (01) ==
LOC: LABSPEC 11:29
PROVIDERS: Visit Provider Obstetrics & Gynecology
DX: Z12.4 Encounter for screening for malignant neoplasm of cervix (principal)
CPT/HCPCS: 88175; G0145

== ENCOUNTER → 2021-02-25 15:30 | Outpatient (CLI) | payer MEDICARE, BC, SELFPAY ==
[2019-10-15 08:54] VITALS: BMI 25.2
--- NOTE | 2021-02-25 15:33 | BI_ITS ---
MAMMOGRAPHY - BILATERAL SCREENING REASON FOR EXAM: Female, 65 years old. Routine annual screening examination. PERTINENT HISTORY: Non-contributory. TECHNIQUE: Digital bilateral breast alexandrea (3D mammographic acquisition) in the CC and MLO projections. 2-D mediolateral oblique (MLO) and craniocaudad (CC) views of both breasts were obtained. CAD: Full Field Digital Mammography with Computer Added Detection was performed. COMPARISON: Comparison is made with prior study 09/09/2019. FINDINGS: Breast Composition: The breasts are heterogeneously dense, which may obscure small masses. There are no dominant masses or suspicious calcifications. No other significant abnormalities are identified. There has been no significant change since the prior study. BI/SCRN MAMM (CAD)W/ALEXANDREA BILAT IMPRESSION: Stable bilateral screening mammogram. Yearly follow-up mammogram recommended. (A) ASSESSMENT CATEGORY: BIRADS Category 1: Negative. A letter regarding these results will be sent to the patient by the facility within 30 days. Approximately 10% of breast cancers are not detected by mammography. A normal mammogram should not delay biopsy of a clinically suspicious abnormality. [id number] Electronically Signed: Tj Kemp MD at 8:17 EDT , Service support ,
== END ==
PROVIDERS: Referring Provider Obstetrics & Gynecology; Visit Provider Obstetrics & Gynecology
DX: Z12.31 Encounter for screening mammogram for malignant neoplasm of breast (principal)
CPT/HCPCS: 77063; 77067

== ENCOUNTER → 2021-08-05 08:09 | Outpatient (CLI) | payer MEDICARE, BC, SELFPAY ==
[2021-08-06 08:08] LABS: Cancer Antigen 125 3.8 U/mL (0.0-38.1)
== END ==
PROVIDERS: PCP Thoracic Surgery (Cardiothoracic Vascular Surgery); Referring Provider Obstetrics & Gynecology; Visit Provider Obstetrics & Gynecology
DX: C56.9 Malignant neoplasm of unspecified ovary (principal)
CPT/HCPCS: 36415; 86304

== ENCOUNTER → 2021-08-16 12:31 | Outpatient (CLI) | payer MEDICARE, BC, SELFPAY | PROVIDERS: PCP Thoracic Surgery (Cardiothoracic Vascular Surgery) | DX: C65.2 Malignant neoplasm of left renal pelvis (principal) ==

== ENCOUNTER 2021-11-27 10:14 | Outpatient (CLI) | payer MEDICARE, BC, SELFPAY ==
[2021-11-27 11:11] LABS: Hematocrit 43.8 % (37-47); Hemoglobin 14.4 g/dL (12.0-15.0); Mean Corp Hgb Conc 32.9 g/dL (32-36); Mean Corpuscular Hgb 31.2 pg (27.0-32.0); Mean Corpuscular Volume 94.8 fL (81-99); Mean Platelet Vol. 10.2 fl (6.2-12.0); Platelet Count 288 K/mm3 (150-450); RBC Distribution Width SD 45.5 fl (35.1-43.9); Red Blood Count 4.62 M/mm3 (4.2-5.4); White Blood Count 6.9 K/mm3 (4.4-11.0)
[2021-11-27 11:45] LABS: Vitamin D,25 Hydroxy 86.8 ng/mL
[2021-11-27 12:02] LABS: ALB/GLOB Ratio 1.1 RATIO (0.9-2.4); AST(SGOT) 12 U/L (15-37); Alanine Aminotransfer ALT/SGPT 17 U/L (13-56); Albumin, Serum 3.8 g/dL (3.2-5.0); Alkaline Phosphatase 45 U/L (45-117); Anion Gap 3 (5-15); BUN 12 mg/dL (7-18); Calcium,Total 9.1 mg/dL (8.5-10.1); Chloride 103 mmol/L (98-107); Creatinine, Serum 0.86 mg/dL (0.55-1.02); EST Glomerular Filtration Rate 70 mL/min (>60); Est Glom Filt Rate - Afr Amer 84 mL/min (>60); Free T3 2.1 pg/mL (2.18-3.98); Globulin 3.5 g/dL (2.2-4.2); Glucose 94 mg/dL (74-106); Potassium 4.3 mmol/L (3.5-5.1); Protein, Total 7.3 g/dL (6.4-8.2); Sodium Level 137 mmol/L (136-145); T4 Free Direct 1.12 ng/dL (0.76-1.46); Thyroid Stim Hormone (TSH) 4.13 uIU/mL (0.358-3.74)
[2021-11-28 10:57] LABS: Thyroid Peroxidase AB 555 IU/mL (0-34)
== END 2021-11-27 23:59 | disposition home or self-care (01) ==
PROVIDERS: PCP Thoracic Surgery (Cardiothoracic Vascular Surgery); Visit Provider Thoracic Surgery (Cardiothoracic Vascular Surgery)
DX: R53.83 Other fatigue (principal); E34.9 Endocrine disorder, unspecified; E55.9 Vitamin D deficiency, unspecified; Z79.890 Hormone replacement therapy
CPT/HCPCS: 36415; 80053; 82306; 82670; 83001; 84403; 84439; 84443; 84481; 85027; 86376

== ENCOUNTER → 2022-02-17 | Outpatient (CLI) | payer MEDICARE, BC, SELFPAY ==
[2022-02-18 11:10] LABS: Cancer Antigen 125 4.6 U/mL (0.0-38.1)
== END | disposition home or self-care (01) ==
PROVIDERS: PCP Family Medicine
DX: C56.2 Malignant neoplasm of left ovary (principal)
CPT/HCPCS: 36415; 86304

== ENCOUNTER → 2022-02-26 | Outpatient (CLI) | payer MEDICARE, BC, SELFPAY | END | disposition home or self-care (01) | LOC: LABSPEC 11:55 | PROVIDERS: PCP Family Medicine; Visit Provider Obstetrics & Gynecology | DX: Z85.43 Personal history of malignant neoplasm of ovary (principal); Z90.710 Acquired absence of both cervix and uterus | CPT/HCPCS: 88175; G0145 ==

== ENCOUNTER → 2022-03-12 | Outpatient (CLI) | payer MEDICARE, BC, SELFPAY ==
--- NOTE | 2022-03-12 10:38 | BI_ITS ---
MAMMOGRAPHY - BILATERAL SCREENING REASON FOR EXAM: Female, 66 years old. Routine annual screening examination. PERTINENT HISTORY: Non-contributory. TECHNIQUE: Digital bilateral breast alexandrea (3D mammographic acquisition) in the CC and MLO projections. 2-D mediolateral oblique (MLO) and craniocaudad (CC) views of both breasts were obtained. CAD: Full Field Digital Mammography with Computer Added Detection was performed. COMPARISON: Screening mammogram from 02/25/2021, 12/10/2018. FINDINGS: Breast Composition: The breasts are heterogeneously dense, which may obscure small masses. There are no dominant masses or suspicious calcifications. No other significant abnormalities are identified. There has been no significant change since the prior study. BI/SCRN MAMM (CAD)W/ALEXANDREA BILAT IMPRESSION: Stable bilateral screening mammogram. Yearly follow-up mammogram recommended. (A) ASSESSMENT CATEGORY: BIRADS Category 1: Negative. A letter regarding these results will be sent to the patient by the facility within 30 days. Approximately 10% of breast cancers are not detected by mammography. A normal mammogram should not delay biopsy of a clinically suspicious abnormality. [id number] Electronically Signed: Bang Olivera, at 18:20 EDT ,
== END | disposition home or self-care (01) ==
LOC: OPBI 10:35
PROVIDERS: PCP Family Medicine; Referring Provider Obstetrics & Gynecology; Visit Provider Obstetrics & Gynecology
DX: Z12.31 Encounter for screening mammogram for malignant neoplasm of breast (principal)
CPT/HCPCS: 77063; 77067

== ENCOUNTER → 2022-03-26 | Outpatient (CLI) | payer MEDICARE, BC, SELFPAY ==
[2022-03-26 16:26] LABS: Thyroid Stim Hormone (TSH) 1.94 uIU/mL (0.358-3.74)
== END | disposition home or self-care (01) ==
LOC: LAB 15:05
PROVIDERS: PCP Family Medicine; Visit Provider Internal Medicine Endocrinology, Diabetes & Metabolism
DX: E04.2 Nontoxic multinodular goiter (principal)
CPT/HCPCS: 36415; 84443

== ENCOUNTER 2022-04-18 07:35 | Day surgery (SDC) | payer MEDICARE, BC, SELFPAY ==
[2022-04-18] VITALS (7 sets, daily range): BP systolic 110–144; BP diastolic 74–99; PULSE 69–77; RESP 16–18; TEMP 36.4–37.1; O2SAT 98–99; BMI 27.6
[2022-04-18] MEDS: Lactated Ringers 1,000 ML 15 ML IV (08:26)
--- NOTE | 2022-04-18 08:42 | H&P.OPEN ---
HPI - General HPI Narrative ROSALVA FRANCIS, is a 66 F who presents for screening colonoscopy. Her last colonoscopy was 17 years ago. She denies any abdominal pain or blood in the stool. [facility] Medical History (Updated 04/15/22 @ 08:48 by Kemi Cast) Arthritis Gastric reflux History of cancer History of echocardiogram Knee pain Osteoarthritis Thyroid disease Wears partial dentures Home Medications pantoprazole 40 mg tablet,delayed release 40 mg PO DAILY GERD 04/03/17 [History Last Taken 12/09/17 05:30] lactobacillus combination no.4 3 billion cell capsule (Probiotic) 3,000 mmu cells PO DAILY 05/25/19 [History Last Taken Unknown] ergocalciferol (vitamin D2) 1,250 mcg (50,000 unit) capsule 1,250 mcg PO QWEEK 02/28/22 [History Last Taken Unknown] levothyroxine 125 mcg capsule 125 mcg PO DAILY 02/28/22 [History Last Taken Unknown] loratadine 10 mg tablet (Claritin) 10 mg PO DAILY 02/28/22 [History Last Taken Unknown] omega-3 fatty acids 1,000 mg capsule 1,000 mg PO DAILY 02/28/22 [History Last Taken Unknown] progesterone micronized 100 mg capsule 100 mg PO QHS 02/28/22 [History Last Taken Unknown] cyanocobalamin (vitamin B-12) 5,000 mcg sublingual tablet (Vitamin B-12) 5,000 mcg sublingual DAILY 04/15/22 [History Last Taken Unknown] Allergy/AdvReac Type Severity Reaction Status Date / Time Sulfa (Sulfonamide Allergy Unknown Verified 04/18/22 08:09 Antibiotics) adhesive tape AdvReac Severe Skin Verified 04/18/22 08:09 irritation and rash codeine AdvReac Vomiting Verified 04/18/22 08:09 pentazocine [From Talwin] AdvReac Other Verified 04/18/22 08:09 Family History Father Heart disease Mother Hypertension GERD (gastroesophageal reflux disease) Sister Ovarian cancer Brother Esophageal cancer Surgical History (Updated 04/15/22 @ 08:48 by Kemi Cast) History of arthroscopy of right knee History of removal of Port-a-Cath (~09/2019) History of tonsillectomy and adenoidectomy History of total abdominal hysterectomy and bilateral salpingo-oophorectomy Hx of colonoscopy Social History Smoking Status: Never smoker alcohol intake: never Past Medical/Surgical History Planned Operation Planned Operative Procedure/s: Colonoscopy S.O.S: No Previous Hospitalizations/Surgeries HX Hospitalizations: No HX of Surgeries: TONSILS CHILD 1994 RIGHT KNEE ARTHROSCOPY TEETH EXTRACTION , HYSTERECTOMY, BSO Any Problems With Anesthesia: No You/Your Family Experience Fever (Hyperthermia) With Anes: No Cholinesterase deficiency: No Cardiovascular Hx Chest Pain within Last 2 months: No Hx of Irregular Heartbeat and/or Afib: Yes (IRREG BEAT WITH ANXIETY) Hx Heart Attack: No Hx Congestive Heart Failure: No Hx Rheumatic Fever: No Hx Hypertension: No Hx Internal Defibrillator: No Hx Pacemaker: No Hx Cardiac Catheterization: No Hx Cardiac Surgery/Stents/Etc.: No Hx Stress Test: Yes (STATES NEG OVER 10 YRS AGO) Hx Pain in Legs when Walking/Leg Cramps: No Respiratory Chronic Cough: No HX of Shortness of Breath: No Hoarseness: No Hx Chronic Obstructive Pulmonary Disease (COPD): No Hx Asthma: No Hx Emphysema: No Hx Sleep Apnea: No Hx Respiratory Tract Infection/Cold (presently): No Do You Snore Loudly (louder than talking or can be heard): Yes Do You Often Feel Tired/ Fatigued/ Sleepy Dring Daytime?: No Has Anyone Observed You Stop Breathing During Sleep?: No Result (for STOP score): Negative Hx Smoking: Yes (SOCIAL SMOKER, FORMER 20 PACK YEAR) Smoking Status: Never smoker Gastrointestinal Hx Gastroesophageal Reflux: Yes Controlled With Meds: Yes (PEOTONIX) Hx Gastrointestinal Disorders: No Hx Gastrointestinal Bleed: No Hx Ulcer: Yes (15 YRS AGO, RESOLVED) Hx Hiatal Hernia: Yes Difficulty Chewing/Swallowing: No Special diet followed at home: No Hx Unplanned Weight Loss of 20#: No HX Unplanned Weight Gain of 20#: No Neurological Hx Seizures: No HX Syncope/Blackout Spells/Unconsciousness: No Hx Transient Ischemic Attacks (TIA): No Hx Multiple Sclerosis: No Hx Parkinson's Disease: No Hx Head/Neck Injury: No Hx Headaches: No Hx Back Injury/Pain: No Recent Onset of Speech Difficulty: No Restless Legs: No Does patient have nerve stimulator: No Blood Disorder Hx Leukemia: No Bleeding Tendencies: No Hx Deep Vein Thrombosis: No Hx High Cholesterol: No Blood Transmitted Disease: No Hx Hepatitis: No Hx Cirrhosis: No Hx Anemia: No Hx Blood Disorders: No Reproduction : No Is Patient Lactating: No Hx Hysterectomy: No Hx Tubal Ligation: No Are You Post Menopause: Yes Genitourinary Hx Renal Disease: No Musculoskeletal Hx Arthritis: No Hx Rheumatoid Arthritis: No Hx Gout: No Recent Onset of an Orthopedic Problem: No Endocrine Hx Diabetes: No Thyroid Disease: Yes (ON MED) Hx Steroid Therapy: No Psycho/Social Hx Substance Use: No Hx Alcohol Use: Yes (SOCIAL) Hx Anxiety: Yes (PER HX) Hx Depression: No Mental Illness: No Hx Dementia: No Miscellaneous Hx Cancer: Yes (OVARIAN) Recent Exposure to Contagious Disease: No Hx of C-Diff: No Any Loose Teeth: No (PARTIAL UPPER) Allergies Sulfa (Sulfonamide Antibiotics) Allergy (Verified 04/18/22 08:09) Unknown adhesive tape Adverse Reaction (Severe, Verified 04/18/22 08:09) Skin irritation and rash codeine Adverse Reaction (Verified 04/18/22 08:09) Vomiting pentazocine [From Talwin] Adverse Reaction (Verified 04/18/22 08:09) Other HALLUCINATIONS Maternal: Family History Father Heart disease Mother Hypertension GERD (gastroesophageal reflux disease) Sister Ovarian cancer Brother Esophageal cancer Hypertension and - (hypothyroidism) Paternal: Family History Father Heart disease Mother Hypertension GERD (gastroesophageal reflux disease) Sister Ovarian cancer Brother Esophageal cancer Heart Disease ([place], GERD) Discharge Is Pt Admitted From a [facility], or a Intermediate: No After D/C, Where Do you Plan to Go: Return Home From the PAT History Number of Risk Factors: 5 Vital Signs Vital Signs Vital Signs: 04/18/22 08:11 04/18/22 08:14 Temperature 98.7 F Temperature Source Temporal Pulse Rate 71 Respiratory Rate 16 Respiratory Pattern Normal Blood Pressure 144/79 H Blood Pressure Mean 100 Blood Pressure Source Monitor Blood Pressure Position Semi-Fowlers Blood Pressure Location Left Arm Pulse Ox 98 Oxygen Delivery Method Room Air Weight Weight: 160 lb 14.999 oz Body Mass Index (BMI) 27.6 Physical Exam Const alert and oriented x3 Resp normal respiratory effort and normal air movement Cardio regular rate and regular rhythm GI soft to palpation, non-tender and non-distended Assessment & Plan Assessment/Plan (1) Encounter for screening for malignant neoplasm of colon: PLAN: I explained endoscopy in detail to the patient. I explained the risks including but not limited to stroke or heart attack with anesthesia, perforation of the GI tract, bleeding, infection. I explained that any of these could necessitate further emergency surgery. The patient understands and all questions were answered sufficiently. The patient wishes to proceed with procedure. Earl Long MD Pager: [facility] [address] [place] [address], [address] [place] [address] Office: Surgery Risks - Colonoscopy Risks Include but are not Limited To: Risks include but are not limited to: Bleeding, perforation requiring further surgery, inability to complete colonoscopy requiring barium enema.
--- NOTE | 2022-04-18 09:16 | OP.CCLET_ITS ---
04/18/2022 [place] Re : Colonoscopy procedure for Goldie Haley This procedure was performed on Monday, April 18, 2022. My impressions and recommendations are as follows: Impressions : - The entire examined colon is normal on direct and retroflexion views. - No specimens collected. Recommendations : - Discharge patient to home. - Resume previous diet. - Continue present medications. - Repeat colonoscopy is not recommended due to current age (66 years or older) for screening purposes. My findings are described in the full procedure note, which is enclosed. If I can be of further assistance, please feel free to contact me at Doctor phone number(s): , Work: . Sincerely, Earl Long MD 04/18/2022 9:16:20 AM This report has been signed electronically.
--- NOTE | 2022-04-18 09:16 | OP.COLON_ITS ---
Patient Name: Goldie Horner Procedure Date: 04/18/2022 8:47 AM Date of : 1955 Age: 66 Procedure: Colonoscopy Indications: Screening for colorectal malignant neoplasm Providers: Earl Long MD Medicines: Monitored Anesthesia Care Patient Profile: This is a 66 year old female. Refer to note in patient chart for documentation of history and physical. Last Colonoscopy: more than 10 years ago. Complications: No immediate complications. Procedure: Pre-Anesthesia Assessment: - Prior to the procedure, a History and Physical was performed, and patient medications and allergies were reviewed. The patient's tolerance of previous anesthesia was also reviewed. The risks and benefits of the procedure and the sedation options and risks were discussed with the patient. All questions were answered, and informed consent was obtained. Prior Anticoagulants: The patient has taken no previous anticoagulant or antiplatelet agents. After reviewing the risks and benefits, the patient was deemed in satisfactory condition to undergo the procedure. After I obtained informed consent, the scope was passed under direct vision. Throughout the procedure, the patient's blood pressure, pulse, and oxygen saturations were monitored continuously. The pediatric colonoscope was introduced through the anus and advanced to the cecum, identified by appendiceal orifice and ileocecal valve. The colonoscopy was performed without difficulty. The patient tolerated the procedure well. The quality of the bowel preparation was good. Scope In: 8:55:38 AM Scope Withdrawal Time 0 hours 6 minutes 22 seconds Scope Out: 9:13:50 AM Total Procedure Duration Time 0 hours 18 minutes 12 seconds Findings: The entire examined colon appeared normal on direct and retroflexion views. Impression: - The entire examined colon is normal on direct and retroflexion views. - No specimens collected. Recommendation: - Discharge patient to home. - Resume previous diet. - Continue present medications. - Repeat colonoscopy is not recommended due to current age (66 years or older) for screening purposes. Procedure Code(s): --- Professional --- 58738, Colonoscopy, flexible; diagnostic, including collection of specimen(s) by brushing or washing, when performed (separate procedure) Diagnosis Code(s): --- Professional --- Z12.11, Encounter for screening for malignant neoplasm of colon CPT copyright 2017 [employer]. All rights reserved. The codes documented in this report are preliminary and upon labor and employment paralegal review may be revised to meet current compliance requirements. Earl Long MD 04/18/2022 9:16:20 AM This report has been signed electronically. Number of Addenda: 0 Note Initiated On: 04/18/2022 8:47 AM
== END 2022-04-18 10:13 | disposition home or self-care (01) ==
LOC: EN 07:37 → AC 07:37
PROVIDERS: PCP Family Medicine; Referring Provider Family Medicine; Visit Provider Surgery
PROC: 0DJD8ZZ Inspection of Lower Intestinal Tract, Via Natural or Artificial Opening Endoscopic (ICD-10-PCS; CPT 45378; principal; 2022-04-18 08:40)
DX: Z12.11 Encounter for screening for malignant neoplasm of colon (principal); K21.9 Gastro-esophageal reflux disease without esophagitis; E07.9 Disorder of thyroid, unspecified; M19.90 Unspecified osteoarthritis, unspecified site; Z90.79 Acquired absence of other genital organ(s); Z90.722 Acquired absence of ovaries, bilateral; Z90.710 Acquired absence of both cervix and uterus; Z79.899 Other long term (current) drug therapy; Z85.43 Personal history of malignant neoplasm of ovary; Z87.19 Personal history of other diseases of the digestive system
CPT/HCPCS: 45378; J7120; J2405

== ENCOUNTER → 2022-05-28 | Outpatient (CLI) | payer MEDICARE, BC, SELFPAY ==
[2022-05-28 15:13] LABS: Vitamin D,25 Hydroxy 93.5 ng/mL
[2022-05-28 15:16] LABS: PTHIN 24.4 pg/mL (18.4-80.1)
[2022-05-28 15:22] LABS: ALB/GLOB Ratio 0.9 RATIO (0.9-2.4); AST(SGOT) 18 U/L (15-37); Alanine Aminotransfer ALT/SGPT 19 U/L (13-56); Albumin, Serum 3.5 g/dL (3.2-5.0); Alkaline Phosphatase 50 U/L (45-117); Anion Gap 6 (5-15); BUN 15 mg/dL (7-18); BUN/Creat Ratio 17.1 RATIO (10-20); Calcium,Total 8.9 mg/dL (8.5-10.1); Chloride 104 mmol/L (98-107); Creatinine, Serum 0.88 mg/dL (0.55-1.02); EST Glomerular Filtration Rate 68 mL/min (>60); Est Glom Filt Rate - Afr Amer 83 mL/min (>60); Globulin 3.7 g/dL (2.2-4.2); Glucose 160 mg/dL (74-106); Potassium 3.8 mmol/L (3.5-5.1); Protein, Total 7.2 g/dL (6.4-8.2); Sodium Level 138 mmol/L (136-145); Thyroid Stim Hormone (TSH) 2.82 uIU/mL (0.358-3.74)
[2022-06-03 18:07] LABS: Creatinine, Urine 123.6 mg/dL (Not Estab.); N-Telopeptide, Urine 265 nmol BCE (Not Estab.)
[2022-06-04 15:21] LABS: NTX:Creatinine Ratio, Urine 24 (0-89)
== END | disposition home or self-care (01) ==
LOC: LAB 13:29
PROVIDERS: PCP Family Medicine; Referring Provider Internal Medicine Endocrinology, Diabetes & Metabolism; Visit Provider Internal Medicine Endocrinology, Diabetes & Metabolism
DX: E03.8 Other specified hypothyroidism (principal); E21.5 Disorder of parathyroid gland, unspecified; E55.9 Vitamin D deficiency, unspecified; M81.0 Age-related osteoporosis without current pathological fracture
CPT/HCPCS: 36415; 80053; 82306; 82523; 83970; 84166; 84443

== ENCOUNTER → 2022-06-05 | Outpatient (CLI) | payer MEDICARE, BC, SELFPAY ==
[2022-06-12 18:07] LABS: Dopamine, UR 172 ug/L (Undefined); Epinephrine, 24Ur 1 ug/24 hr (0-20); Epinephrine, Ur 1 ug/L (Undefined); Norepinephrine, 24Ur 45 ug/24 hr (0-135); Norepinephrine, Ur 37 ug/L (Undefined)
[2022-06-13 17:50] LABS: Dopamine, 24Ur 210 ug/24 hr (0-510)
== END | disposition home or self-care (01) ==
PROVIDERS: PCP Family Medicine; Referring Provider Internal Medicine Endocrinology, Diabetes & Metabolism; Visit Provider Internal Medicine Endocrinology, Diabetes & Metabolism
DX: M81.0 Age-related osteoporosis without current pathological fracture (principal)
CPT/HCPCS: 81050; 82384

== ENCOUNTER → 2022-08-01 | Outpatient (CLI) | payer MEDICARE, BC, SELFPAY ==
[2022-08-02 11:42] LABS: Cancer Antigen 125 3.8 U/mL (0.0-38.1)
== END | disposition home or self-care (01) ==
LOC: LAB 08:13
PROVIDERS: PCP Family Medicine
DX: C56.2 Malignant neoplasm of left ovary (principal)
CPT/HCPCS: 36415; 86304

== ENCOUNTER → 2022-09-12 | Outpatient (CLI) | payer MEDICARE, BC, SELFPAY ==
[2022-09-12 09:42] LABS: Vitamin D,25 Hydroxy 85.9 ng/mL
[2022-09-12 09:51] LABS: AST(SGOT) 14 U/L (15-37); Alanine Aminotransfer ALT/SGPT 18 U/L (13-56); Albumin, Serum 3.5 g/dL (3.2-5.0); Alkaline Phosphatase 46 U/L (45-117); Anion Gap 4 (5-15); BUN 17 mg/dL (7-18); BUN/Creat Ratio 19.4 RATIO (10-20); Chloride 103 mmol/L (98-107); Cholesterol 177 mg/dL (200); Creatinine, Serum 0.88 mg/dL (0.55-1.02); EST Glomerular Filtration Rate 68 mL/min (>60); Est Glom Filt Rate - Afr Amer 82 mL/min (>60); Globulin 3.6 g/dL (2.2-4.2); Glucose 110 mg/dL (74-106); High Density Lipoprotein 46 mg/dL; Potassium 4.2 mmol/L (3.5-5.1); Protein, Total 7.1 g/dL (6.4-8.2); Sodium Level 137 mmol/L (136-145); Thyroid Stim Hormone (TSH) 1.27 uIU/mL (0.358-3.74); Triglycerides 85 mg/dL; Very Low Density Lipoprotein 17 mg/dL (5-40)
== END | disposition home or self-care (01) ==
LOC: LAB 08:49
PROVIDERS: PCP Family Medicine; Referring Provider Family Medicine; Visit Provider Family Medicine
DX: E03.8 Other specified hypothyroidism (principal); M81.0 Age-related osteoporosis without current pathological fracture; E55.9 Vitamin D deficiency, unspecified; E04.2 Nontoxic multinodular goiter; Z13.1 Encounter for screening for diabetes mellitus; Z13.6 Encounter for screening for cardiovascular disorders
CPT/HCPCS: 36415; 80053; 80061; 82306; 84443